=== PATIENT | female | born 1955 | race American Indian/Alaskan Native ===

== ENCOUNTER 2016-09-11 13:57 | Emergency (ER) | payer MEDICARE, MEDICAID ==
[2016-09-11 14:06] VITALS: BP 160/86
--- NOTE | 2016-09-11 14:26 | EDM.PDOC ---
{null, ED HPI GENERAL MEDICAL PROBLEM - General Chief Complaint: Lower Extremity Injury/Pain Stated Complaint: RT ANKLE Time Seen by Provider: 09/11/16 14:20 Source of Information: Reports: Patient History Limitations: Reports: No Limitations - History of Present Illness INITIAL COMMENTS - FREE TEXT/NARRATIVE: PT comes to the ED today with complaints of right ankle pain for the past 2 weeks. She doesn't remember how she injured her ankle 2 weeks ago but it has been slowly getting more painful since that time. She has not been seen for this ankle injury in the recent past or since her pain has developed. She relates that she is in so much pain that she is unable to walk. She denies any injury to her knee or tib/fib region. Denies any pain to the foot. Just in the ankle. Denies numbness or tingling. Denies taking anything for pain other than Tylenol and Ibuprofen without improvement of pain. Last time she took any Ibuprofen or Tylenol was yesterday at 1800 hrs. She denies taking any medication chronically for any chronic pain or other reasons. Her only medication that she takes is Risperdol for her HTN. Right Ankle Pain Score (Numeric/FACES): 10 - Related Data Allergies Allergy/AdvReac Type Severity Reaction Status Date / Time celecoxib [From Celebrex] Allergy Hives Verified 09/11/16 14:03 Home Meds: Home Meds Lisinopril 5 mg PO ASDIRECTED 09/11/16 [History] Past Medical History Cardiovascular History: Reports: Hypertension Gastrointestinal History: Reports: Cholelithiasis Musculoskeletal History: Reports: Arthritis - Infectious Disease History Infectious Disease History: Reports: Chicken Pox, Measles, Mumps - Past Surgical History HEENT Surgical History: Reports: Other (See Below) Other HEENT Surgeries/Procedures: nasal fracture with repair GI Surgical History: Reports: Hernia Repair/Other Female Surgical History: Reports: Tubal Ligation Social & Family History - Tobacco Use Smoking Status *Q: Current Every Day Smoker Years of Tobacco use: 20 Packs/Tins Daily: 1 Second Hand Smoke Exposure: Yes - Recreational Drug Use Recreational Drug Use: No Review of Systems - Review of Systems Review Of Systems: ROS reveals no pertinent complaints other than HPI. Trauma Exam - Physical Exam Exam: See Below Text/Narrative:: I did visualize the patient ambulate to the bathroom without any limp or change in gait. She ambulated easily and steadily. Relates pain is 10/10 and can't take it anymore as she is playing on her cell phone laughing and joking. Exam Limited By: No Limitations General Appearance: Reports: Alert, WD/WN, No Apparent Distress Head: Reports: Atraumatic, Normocephalic Respiratory Exam: Reports: No Respiratory Distress, Lungs Clear Cardiovascular: Reports: Normal Peripheral Pulses, Bradycardia Extremities: Other (Examination of the right lower extremity. The ankle has mild swelling medial and lateral malleolus although this is very similar to the left ankle as well. NO bruising swelling ecchymosis bony deformity crepitus or other signs of traums identifed. CMS intact appropriately to the entirety of the right lower extremity. The rest of the extremity is unremarkable and atraumatic. ) Skin: Reports: Normal Color, Warm/Dry - Anastasia Coma Score Best Eye Response ([place]): (4) Open Spontaneously Best Verbal Response ([place]): (5) Oriented Best Motor Response ([place]): (6) Obeys Commands Course - Vital Signs Last Recorded V/S: Last Vital Signs Temp 35.8 C 09/11/16 14:05 Pulse 91 09/11/16 14:05 Resp 18 09/11/16 14:05 BP 160/86 H 09/11/16 14:05 Pulse Ox 95 09/11/16 14:05 - Orders/Labs/Meds Orders: Active Orders 24 hr Category Date Time Status Ankle Min 3V Rt [CR] Urgent Exams 09/11/16 14:24 Ordered - Radiology Interpretation Free Text/Narrative:: Xray right ankle. Reviewed extemporaneously by myself. Some osteoarthrits with soft tissue swelling medially. No acute bony fracture or dislocation. Per radiology, no fracture or dislocation, mild ankle jiont DJD, soft tissue swelling predominantly medially planter calcaneal spur. - Re-Assessments/Exams Free Text/Narrative Re-Assessment/Exam: 09/11/16 14:48 30mg toradol IM. I did review the patients PDMP and it appears that she get tramadol on a monthly basis from [facility] prescriber [facility] [place]. When I asked the patient after reviewing the PDMP again if she received anything chronically for pain managment or other medication she denied. I then identified the PDMP and relayed that someone then has been getting medications under her name and every month for tramadol. She then stated that she forgot that she took Tramadol on a daily basis for arthritis pain to her right knee. She is unsure if she is under a pain contract with her prescriber. X ray of the right ankle completed. Xray chronic changes nothing acute. No fracture dislocation. Spoke about therapy of an ankle sprain and how to rehab it. Aggressive management over the next few weeks. Discharge instructions as below were explained to the patient she was comfortable with this plan and her questions were answered. 09/11/16 15:26 09/11/16 15:29 Departure - Departure Time of Disposition: 15:12 Disposition: Home, Self-Care 01 Condition: good Clinical Impression: Ankle sprain Qualifiers: Encounter type: initial encounter Involved ligament of ankle: unspecified ligament Laterality: right Qualified Code(s): S93.401A - Sprain of unspecified ligament of right ankle, initial encounter - Discharge Information Instructions: Ankle Sprain, [id number] Forms: ED Department Discharge Additional Instructions: Tylenol and or Ibuprofen as needed for pain. Without any acute pathology and 2 weeks post injury narcotics are not indicated at this time for management. Continue the use of the tramadol. Gel splint to the ankle for support at all times until symptoms free at minimum and then would wear for the next few weeks for protection of the ankle and especially if very physically active like running, basketball or tennis etc. Crutches until you can walk without a limp. Write the alphabet with your big toe 3-4 times a day as shown to keep ankle joint mobile. Return to the ED if new or worsening symptoms. Recheck primary care provider in 7 days. - My Orders Last 24 Hours: My Active Orders 09/11/16 14:24 Ankle Min 3V Rt [CR] Urgent - Assessment/Plan Last 24 Hours: My Active Orders 09/11/16 14:24 Ankle Min 3V Rt [CR] Urgent Assessment:: Ankle sprain, weeks of pain. Plan: Tylenol and or Ibuprofen as needed for pain. Without any acute pathology and 2 weeks post injury narcotics are not indicated at this time for management. Continue the use of the tramadol. Gel splint to the ankle for support at all times until symptoms free at minimum and then would wear for the next few weeks for protection of the ankle and especially if very physically active like running, basketball or tennis etc. Crutches until you can walk without a limp. Write the alphabet with your big toe 3-4 times a day as shown to keep ankle joint mobile. Return to the ED if new or worsening symptoms. Recheck primary care provider in 7 days }
[2016-09-11] MEDS ORDERED: Ketorolac 30 MG/ML SDV IM ONE (14:55)
== END 2016-09-11 15:32 | disposition home or self-care (01) ==
LOC: DL.ED 13:57
DX: S93.401A Sprain of unspecified ligament of right ankle, initial encounter (principal); I10 Essential (primary) hypertension; M19.90 Unspecified osteoarthritis, unspecified site; F17.210 Nicotine dependence, cigarettes, uncomplicated; Z98.51 Tubal ligation status; Z88.8 Allergy status to other drugs, medicaments and biological substances; X58.XXXA Exposure to other specified factors, initial encounter
CPT/HCPCS: 73610; 96372; 99284; J1885; 99282

== ENCOUNTER 2024-03-05 16:08 | Inpatient (IN) | payer MEDICARE, MEDICAID ==
[2024-03-05 16:42] LABS: BASOPHILS PERCENT AUTO 0.6 % (0.0-1.0); EOSINOPHILS PERCENT AUTO 1.1 % (1.0-3.0); HEMATOCRIT 24.3 % (37.0-47.0); LYMPHOCYTES PERCENT AUTO 18.5 % (20.5-50.1); MEAN CORPUSCULAR HEMOGLOBIN 18.2 pg (27.0-34.0); MEAN CORPUSCULAR HGB CONC 25.1 g/dL (33.0-35.0); MEAN CORPUSCULAR VOLUME 72.5 fL (80-100); MONOCYTES PERCENT AUTO 14.3 % (2-8); NEUTROPHILS PERCENT AUTO 65.5 % (42.2-75.2); PLATELET COUNT,PLT 191 10^3/uL (150-450); RED BLOOD CELL COUNT 3.35 10^6/uL (4.2-5.4); WHITE BLOOD CELL COUNT,WBC 3.6 10^3/uL (5.0-10.0)
[2024-03-05 16:48] LABS: HEMOGLOBIN 6.1 g/dL (12.0-16.0)
[2024-03-05 17:07] LABS: ALANINE AMINOTRANSFERASE,ALT 11 U/L (14-59); ALBUMIN 3.3 g/dL (3.4-5.0); ALKALINE PHOSPHATASE 96 U/L (46-116); ANION GAP 8.8 mEq/L (7-13); ASPARTATE AMNIOTRANSFERASE,AST 10 U/L (15-37); BLOOD UREA NITROGEN,BUN 9 mg/dL (7-18); BUN/CREATININE RATIO 12.7 (No establ ref range); CALCIUM 9.3 mg/dL (8.5-10.1); CARBON DIOXIDE,CO2 31 mmol/L (21-32); CHLORIDE,CL 107 mmol/L (98-107); CREATINE KINASE,CK 37 U/L (16-191); CREATININE 0.71 mg/dL (0.55-1.02); GLUCOSE RANDOM 121 mg/dL (70-99); POTASSIUM,K 3.8 mmol/L (3.5-5.1); PROTEIN TOTAL,TP 6.8 g/dL (6.4-8.2); SODIUM,NA 143 mmol/L (136-145); TSH ULTRASENSITIVE 6.76 uIU/mL (0.36-3.74)
[2024-03-05 17:12] LABS: A/G RATIO 0.94; ESTIMATED GFR 93 mL/min (>=60)
[2024-03-05 17:32] LABS: B-TYPE NATRIURETIC PEPTIDE,BNP 24 pg/ml (0-100)
[2024-03-05] MEDS: Iopamidol 755 Mg/ML 100 ML Bottle IVPUSH ONE (18:25)
[2024-03-05] MEDS ORDERED: Docusate Sodium 100 MG Cap PO PRN (19:55)
[2024-03-05] MEDS ORDERED: Ondansetron 4 MG Tab.DIS PO PRN (19:55)
[2024-03-05] MEDS ORDERED: Ondansetron 4 MG/2 ML SDV IVPUSH PRN (19:55)
[2024-03-05] MEDS ORDERED: Sodium Chloride 0.9% 10 ML Syringe FLUSH PRN (19:55)
[2024-03-05] MEDS ORDERED: Lisinopril 5 MG Tab PO SCH (20:00)
[2024-03-05] MEDS: Sodium Chloride 0.9% 10 ML Syringe FLUSH SCH (21:53)
[2024-03-06 06:39] LABS: HEMATOCRIT 25.1 % (37.0-47.0); MEAN CORPUSCULAR HGB CONC 27.1 g/dL (33.0-35.0); MEAN CORPUSCULAR VOLUME 77.5 fL (80-100); RED BLOOD CELL COUNT 3.24 10^6/uL (4.2-5.4); WHITE BLOOD CELL COUNT,WBC 4.2 10^3/uL (5.0-10.0)
[2024-03-06 06:42] LABS: HEMOGLOBIN 6.8 g/dL (12.0-16.0)
[2024-03-06 06:58] LABS: ANION GAP 7.8 mEq/L (7-13); CALCIUM 8.7 mg/dL (8.5-10.1); CREATININE 0.63 mg/dL (0.55-1.02); EST CRCL DRUG DOSING (CG) 70.7 mL/min; POTASSIUM,K 3.8 mmol/L (3.5-5.1)
[2024-03-06] MEDS: Lisinopril 5 MG Tab PO SCH (08:00)
[2024-03-06] MEDS: Nystatin Topical Powder 60 GM Bottle TOP SCH (09:45)
[2024-03-06] MEDS: Enoxaparin 40 MG/0.4 ML Syringe SUBCUT SCH (10:07)
[2024-03-06 14:15] LABS: TSH ULTRASENSITIVE 2.82 uIU/mL (0.36-3.74)
[2024-03-06] MEDS: Furosemide 20 MG/2 ML VIAL IVPUSH ONE (14:54)
[2024-03-06] MEDS: Iron Sucrose Complex 500 MG in Sodium Chloride 0.9% 250 ML IV ONE (14:56)
[2024-03-06] MEDS: Ferrous Sulfate 325 MG Tab PO SCH (17:57)
[2024-03-06] MEDS: Albuterol/Ipratropium 3.0-0.5 MG/3 ML Neb Soln NEB PRN (23:07)
[2024-03-06] MEDS: oxyCODONE 5 MG Tab PO PRN (23:10)
[2024-03-06 23:14] LABS: APPEARANCE,URINE CLOUDY (CLEAR); BILIRUBIN,URINE NEGATIVE (NEGATIVE); COLOR,URINE DARK YELLOW (YELLOW); GLUCOSE,URINE NEGATIVE (NEGATIVE); KETONES,URINE NEGATIVE (NEGATIVE); LEUKOCYTE ESTERASE,URINE NEGATIVE (NEGATIVE); NITRITE,URINE POSITIVE (NEGATIVE); OCCULT BLOOD,URINE NEGATIVE (NEGATIVE); PROTEIN,URINE NEGATIVE (NEGATIVE); UROBILINOGEN,URINE 0.2 mg/dL (0.2-1.0)
[2024-03-06 23:17] LABS: BACTERIA,URINE MANY /HPF (0-FEW/HPF); EPITHELIAL CELLS,URINE FEW /HPF (NOT SEEN); RBC,URINE 0-5 /HPF (0-5)
[2024-03-07] MEDS: cefTRIAXone 1 GM Vial IVPUSH SCH (00:12)
[2024-03-07 05:28] LABS: HEMATOCRIT 27.5 % (37.0-47.0); HEMOGLOBIN 7.6 g/dL (12.0-16.0); MEAN CORPUSCULAR HEMOGLOBIN 21.7 pg (27.0-34.0); MEAN CORPUSCULAR HGB CONC 27.6 g/dL (33.0-35.0); MEAN CORPUSCULAR VOLUME 78.6 fL (80-100); RED BLOOD CELL COUNT 3.5 10^6/uL (4.2-5.4); WHITE BLOOD CELL COUNT,WBC 5.3 10^3/uL (5.0-10.0)
[2024-03-07] MEDS: Levothyroxine 25 MCG Tab PO SCH (05:35)
[2024-03-07] MEDS: Acetaminophen 325 MG Tab PO PRN (07:31)
[2024-03-07 14:37] LABS: PERCENT FE SATURATION 91.2 % (20.0-50.0)
[2024-03-07] MEDS: Iron Sucrose Complex 500 MG in Sodium Chloride 0.9% 250 ML IV ONE (15:06)
[2024-03-08] MEDS: Haloperidol Lactate 5 MG/ML SDV IM STA (02:11)
[2024-03-08] MEDS: Ziprasidone HCl 20 MG Cap PO ONE (05:04)
[2024-03-08 06:01] LABS: HEMATOCRIT 29.4 % (37.0-47.0); HEMOGLOBIN 7.8 g/dL (12.0-16.0); MEAN CORPUSCULAR HEMOGLOBIN 21.7 pg (27.0-34.0); MEAN CORPUSCULAR HGB CONC 26.5 g/dL (33.0-35.0); MEAN CORPUSCULAR VOLUME 81.7 fL (80-100); RED BLOOD CELL COUNT 3.6 10^6/uL (4.2-5.4); WHITE BLOOD CELL COUNT,WBC 5.1 10^3/uL (5.0-10.0)
[2024-03-08] MEDS: Lidocaine 5% 700 MG Patch TOP SCH (11:05)
[2024-03-09 06:57] LABS: HEMATOCRIT 28.1 % (37.0-47.0); HEMOGLOBIN 7.3 g/dL (12.0-16.0); MEAN CORPUSCULAR HEMOGLOBIN 21.6 pg (27.0-34.0); MEAN CORPUSCULAR VOLUME 83.1 fL (80-100); RED BLOOD CELL COUNT 3.38 10^6/uL (4.2-5.4); WHITE BLOOD CELL COUNT,WBC 4.4 10^3/uL (5.0-10.0)
[2024-03-09] MEDS: Folic Acid 1 MG Tab PO SCH (09:14)
[2024-03-09] MEDS: Pantoprazole 40 MG Vial IVPUSH SCH (12:13)
[2024-03-10 07:49] LABS: HEMATOCRIT 28.6 % (37.0-47.0); HEMOGLOBIN 7.5 g/dL (12.0-16.0); MEAN CORPUSCULAR HEMOGLOBIN 22.2 pg (27.0-34.0); MEAN CORPUSCULAR HGB CONC 26.2 g/dL (33.0-35.0); MEAN CORPUSCULAR VOLUME 84.6 fL (80-100); PLATELET COUNT,PLT 148 10^3/uL (150-450); RED BLOOD CELL COUNT 3.38 10^6/uL (4.2-5.4); WHITE BLOOD CELL COUNT,WBC 4.7 10^3/uL (5.0-10.0)
[2024-03-10 07:54] LABS: EOSINOPHILS PERCENT AUTO 1.7 % (1.0-3.0); LYMPHOCYTES PERCENT AUTO 18.7 % (20.5-50.1); MONOCYTES PERCENT AUTO 13.1 % (2-8); NEUTROPHILS PERCENT AUTO 66.1 % (42.2-75.2)
[2024-03-10 07:55] LABS: BASOPHILS PERCENT AUTO 0.4 % (0.0-1.0)
[2024-03-10 08:04] LABS: ANION GAP 4.8 mEq/L (7-13); CALCIUM 8.8 mg/dL (8.5-10.1); CREATININE 0.58 mg/dL (0.55-1.02); EST CRCL DRUG DOSING (CG) 76.79 mL/min; POTASSIUM,K 3.8 mmol/L (3.5-5.1)
[2024-03-10 08:21] LABS: LYMPHOCYTES PERCENT MAN 15 % (20-50); MONOCYTES PERCENT MAN 11 % (2-8); SEG NEUTROPHILS PERCENT MAN 72 % (42-75)
[2024-03-10 08:22] LABS: EOSINOPHILS PERCENT MAN 2 % (1-3); NRBC MANUAL 2 /100WBC
[2024-03-10 09:56] LABS: BASE EXCESS VENOUS 6.4 mmol/l ((-2)-(+3)); BICARBONATE,VENOUS 33 mmol/l (19-25); O2 DELIVERY DEVICE ROOM AIR; O2 SATURATION VENOUS 75.5 % (60-80); PH,VENOUS 7.31 (7.31-7.41); PO2 VENOUS 45 mmHg (35-42)
[2024-03-10 10:05] LABS: PCO2 VENOUS 68 mmHg (41-51)
[2024-03-11 06:27] LABS: HEMATOCRIT 29.5 % (37.0-47.0); HEMOGLOBIN 7.7 g/dL (12.0-16.0); MEAN CORPUSCULAR HGB CONC 26.1 g/dL (33.0-35.0); MEAN CORPUSCULAR VOLUME 84.3 fL (80-100); PLATELET COUNT,PLT 145 10^3/uL (150-450); WHITE BLOOD CELL COUNT,WBC 4.2 10^3/uL (5.0-10.0)
[2024-03-11 06:40] LABS: BASOPHILS PERCENT AUTO 0.5 % (0.0-1.0); EOSINOPHILS PERCENT AUTO 1.9 % (1.0-3.0); LYMPHOCYTES PERCENT AUTO 27.8 % (20.5-50.1); MONOCYTES PERCENT AUTO 13.4 % (2-8); NEUTROPHILS PERCENT AUTO 56.4 % (42.2-75.2)
[2024-03-11 07:00] LABS: ANION GAP 4.7 mEq/L (7-13); CALCIUM 8.9 mg/dL (8.5-10.1); CREATININE 0.57 mg/dL (0.55-1.02); EST CRCL DRUG DOSING (CG) 78.14 mL/min; POTASSIUM,K 3.7 mmol/L (3.5-5.1)
[2024-03-11 08:05] LABS: BAND PERCENT MAN 2 %; EOSINOPHILS PERCENT MAN 1 % (1-3); LYMPHOCYTES PERCENT MAN 28 % (20-50); MONOCYTES PERCENT MAN 6 % (2-8); NRBC MANUAL 2 /100WBC; SEG NEUTROPHILS PERCENT MAN 63 % (42-75)
[2024-03-11 08:47] LABS: O2 DELIVERY DEVICE ROOM AIR
[2024-03-11 09:00] LABS: PH,VENOUS 7.38 (7.31-7.41)
[2024-03-11 09:02] LABS: BASE EXCESS VENOUS 9.7 mmol/l ((-2)-(+3)); BICARBONATE,VENOUS 36 mmol/l (19-25); O2 SATURATION VENOUS 73.6 % (60-80); PCO2 VENOUS 62 mmHg (41-51); PO2 VENOUS 44 mmHg (35-42)
[2024-03-11] MEDS: Albuterol/Ipratropium 3.0-0.5 MG/3 ML Neb Soln NEB SCH (10:09)
[2024-03-12 07:02] LABS: HEMATOCRIT 31.2 % (37.0-47.0); HEMOGLOBIN 8.2 g/dL (12.0-16.0); MEAN CORPUSCULAR HEMOGLOBIN 22.2 pg (27.0-34.0); MEAN CORPUSCULAR HGB CONC 26.3 g/dL (33.0-35.0); MEAN CORPUSCULAR VOLUME 84.3 fL (80-100); PLATELET COUNT,PLT 154 10^3/uL (150-450); WHITE BLOOD CELL COUNT,WBC 3.9 10^3/uL (5.0-10.0)
[2024-03-12 07:35] LABS: ANION GAP 7.5 mEq/L (7-13); CREATININE 0.58 mg/dL (0.55-1.02); EST CRCL DRUG DOSING (CG) 76.79 mL/min; POTASSIUM,K 3.5 mmol/L (3.5-5.1)
[2024-03-12 07:55] LABS: BASOPHILS PERCENT AUTO 0.5 % (0.0-1.0); EOSINOPHILS PERCENT AUTO 1.8 % (1.0-3.0); LYMPHOCYTES PERCENT AUTO 30.4 % (20.5-50.1); MONOCYTES PERCENT AUTO 13.8 % (2-8); NEUTROPHILS PERCENT AUTO 53.5 % (42.2-75.2)
[2024-03-12 08:05] LABS: BASOPHILS PERCENT MAN 1; EOSINOPHILS PERCENT MAN 5 % (1-3); LYMPHOCYTES PERCENT MAN 25 % (20-50); MONOCYTES PERCENT MAN 11 % (2-8); MYELOCYTE PERCENT MAN 1; NRBC MANUAL 9 /100WBC; SEG NEUTROPHILS PERCENT MAN 57 % (42-75)
[2024-03-12 08:06] LABS: ANISOCYTOSIS 3+ MARKED; HYPOCHROMASIA 1+ SLIGHT; POLYCHROMASIA 1+ SLIGHT; STOMATOCYTES 2+ MODERATE
[2024-03-12] MEDS: Pneumococcal 20-Valent Conjug 0.5 ML Syringe IM ONE (10:17)
[2024-03-12] MEDS: FLU (Fluad Triv) TS24-25 (65UP)/MF59C/PF 45 MCG/0.5 ML Syringe IM ONE (10:20)
[2024-03-12 10:34] VITALS: BP 139/85; PULSE 64
== END 2024-03-12 11:35 | DRG 812 ==
LOC: DL.ED 16:08 → DL.MS 18:24 → OBSVTOIN 03-08 11:21
PROVIDERS: ADMIT Internal Medicine; ATTEND Student in an Organized Health Care Education/Training Program
PROC: 30233N1 Transfusion of Nonautologous Red Blood Cells into Peripheral Vein, Percutaneous Approach (ICD-10-PCS; principal; 2024-03-05)
PROC: 30233N1 Transfusion of Nonautologous Red Blood Cells into Peripheral Vein, Percutaneous Approach (ICD-10-PCS; 2024-03-06)
PROC: 3E0234Z Introduction of Serum, Toxoid and Vaccine into Muscle, Percutaneous Approach (ICD-10-PCS; 2024-03-12)
DX: D64.9 Anemia, unspecified (principal); D52.9 Folate deficiency anemia, unspecified; Z68.42 Body mass index [BMI] 45.0-49.9, adult; I10 Essential (primary) hypertension; D61.818 Other pancytopenia; E87.4 Mixed disorder of acid-base balance; J44.1 Chronic obstructive pulmonary disease with (acute) exacerbation; D50.8 Other iron deficiency anemias; R62.7 Adult failure to thrive; M19.90 Unspecified osteoarthritis, unspecified site; R79.89 Other specified abnormal findings of blood chemistry; E66.01 Morbid (severe) obesity due to excess calories; E03.9 Hypothyroidism, unspecified; D69.6 Thrombocytopenia, unspecified; R91.8 Other nonspecific abnormal finding of lung field; F17.210 Nicotine dependence, cigarettes, uncomplicated; D72.819 Decreased white blood cell count, unspecified; I11.0 Hypertensive heart disease with heart failure; I50.9 Heart failure, unspecified; Z23 Encounter for immunization; Z88.8 Allergy status to other drugs, medicaments and biological substances; Z79.899 Other long term (current) drug therapy; Z98.890 Other specified postprocedural states; Z98.51 Tubal ligation status; Z87.81 Personal history of (healed) traumatic fracture
CPT/HCPCS: 36415 ×4; 36430 ×2; 71046; 71275; 80048; 80053; 81001; 82550; 82728; 82746; 83540; 83550; 83735; 83880; 84439; 84443 ×2; 84484; 85018; 85025; 85027 ×3; 85379; 86850; 86900; 86901; 86920 ×2; 86922 ×2; 87086; 87088; 87186; 93005; 93010; 97161; 97165; 99285 ×2; A9270 ×16; J0696 ×2; J1630; J1650 ×3; J1756 ×2; J1940; J7050 ×2; P9016 ×3; Q9967; 82272; 82803; 90653; 90677; 93306; 94060; 94618; 94640; 94660; 94668; 96365; 96366; 96372; 96375; 96376; 97530-GP; 99222; 99232; 99238; G0008; G0009; G0378; J2470; J3490; J7620-GY